=== PATIENT | female | born 1965 | race Caucasian/White ===

== ENCOUNTER 2016-08-04 15:49 | Emergency (ER) | payer OTHER ==
[~2016-08-04] VITALS: Ht 157.5 cm; Wt 71.7 kg
[2016-08-04 15:53] VITALS: BP 178/86
[2016-08-04] MEDS ORDERED: TETANUS-DIPTH-ACEL PERTUSSIS 0.5ML SYRG IM ONE (19:00)
== END 2016-08-04 19:10 | disposition home or self-care (01) ==
LOC: ER 15:53
DX: S91.331A Puncture wound without foreign body, right foot, initial encounter (principal); Z88.0 Allergy status to penicillin; W22.8XXA Striking against or struck by other objects, initial encounter; Y93.89 Activity, other specified; Y99.8 Other external cause status; Y92.89 Other specified places as the place of occurrence of the external cause
CPT/HCPCS: 90471; 90715

== ENCOUNTER 2017-08-28 05:23 | Emergency (ER) | payer OTHER ==
[~2017-08-28] VITALS: Ht 157.5 cm; Wt 70.8 kg
[2017-08-28 06:34] LABS: Basophils # (auto) 0.1 uL; Eosinophils # (auto) 0.2 uL; Eosinophils % (auto) 3.4 % (0.0-7.0); Hematocrit 41.5 % (36.0-46.0); Hemoglobin 14.3 g/dL (12.2-16.2); Lymphocytes # (auto) 2.3 uL; Lymphocytes % (auto) 40.1 % (10.0-50.0); Mean Corpuscular Hemoglobin 32.2 pg (28.0-32.0); Mean Corpuscular Hgb Conc. 34.6 g/dL (32.0-36.0); Mean Corpuscular Volume 93.1 fL (80.0-100.0); Monocytes # (auto) 0.5 uL; Monocytes % (auto) 8.4 % (0.0-12.0); Neutrophils # (auto) 2.7 uL; Neutrophils % (auto) 47.1 % (37.0-80.0); Nucleated Red Blood Cells % 1.4 %; Red Blood Cells 4.46 10^6/uL (4.0-5.20); Red Cell Distribution Width 13.5 % (11.8-14.3); White Blood Cell 5.7 10^3/uL (4.4-10.8)
[2017-08-28 06:47] LABS: Albumin 3.8 g/dL (3.4-5.0); Calcium 9.2 mg/dL (8.5-10.1)
[2017-08-28 06:53] LABS: Bilirubin, Total 0.4 mg/dL (0.2-1.0); Total Protein 7.7 g/dL (6.4-8.2)
[2017-08-28 07:06] LABS: Platelet Count (auto) 430 10^3/uL (140-450)
[2017-08-28 08:11] VITALS: BP 145/81
[2017-08-28] MEDS: PROMETHAZINE HCL 25 MG/ML 1ML IM ONE (08:22)
[2017-08-28] MEDS: KETOROLAC TROMETH 60MG/2ML VIAL IM ONE (08:22)
== END 2017-08-28 09:05 | disposition home or self-care (01) ==
LOC: ER 05:32
DX: R51 Headache (principal); M54.2 Cervicalgia; I10 Essential (primary) hypertension
CPT/HCPCS: 36415; 70450; 72040; 80053; 85025; 96372; 99285; J1885; J2550

== ENCOUNTER 2020-09-24 11:09 | Emergency (ER) | payer OTHER ==
[~2020-09-24] VITALS: Ht 157.5 cm; Wt 69.9 kg
[2020-09-24 13:20] LABS: Basophils # (auto) 0.1 10 ^3/uL (0-0.2); Basophils % (auto) 0.7 % (0.0-2.0); Hemoglobin 13.8 g/dL (12.2-16.2); Mean Corpuscular Hemoglobin 33.2 pg (28.0-32.0); Monocytes # (auto) 0.6 10 ^3/uL (0-1.3); Neutrophils % (auto) 55.6 % (37.0-80.0)
[2020-09-24 13:23] LABS: Eosinophils # (auto) 0.1 10 ^3/uL (0-0.8); Eosinophils % (auto) 1.8 % (0.0-7.0); Hematocrit 39.1 % (36.0-46.0); Lymphocytes # (auto) 2.6 10 ^3/uL (0.4-5.4); Lymphocytes % (auto) 33.8 % (10.0-50.0); Mean Corpuscular Hgb Conc. 35.3 g/dL (32.0-36.0); Mean Corpuscular Volume 94.2 fL (80.0-100.0); Monocytes % (auto) 8.1 % (0.0-12.0); Neutrophils # (auto) 4.3 10 ^3/uL (1.6-8.6); Red Blood Cells 4.15 10^6/uL (4.0-5.20); Red Cell Distribution Width 13.8 % (11.8-14.3); White Blood Cell 7.7 10^3/uL (4.4-10.8)
[2020-09-24 13:46] LABS: Chloride 103 mmol/L (98-107); Potassium 3.5 mmol/L (3.5-5.1); Sodium 136 mmol/L (136-145)
[2020-09-24 13:56] LABS: Alanine Aminotransferase 38 U/L (13-56); Albumin 3.9 g/dL (3.4-5.0); Alkaline Phosphatase 70 U/L (45-117); Anion Gap 5 (5-15); Aspartate Aminotransferase 16 U/L (15-37); BUN/Creatinine Ratio 23.2; Bilirubin, Total 0.3 mg/dL (0.2-1.0); Blood Urea Nitrogen 16 mg/dL (7-18); Calcium 8.8 mg/dL (8.5-10.1); Carbon Dioxide 28 mmol/L (21-32); GFR African American 114 mL/min; GFR Non-African American 94 mL/min; Glucose 88 mg/dL (74-106); Total Protein 7.6 g/dL (6.4-8.2)
[2020-09-24 14:26] LABS: Urine Bacteria NONE SEEN /hpf (None Seen); Urine Blood Negative /uL (Negative); Urine Specific Gravity 1.013 (1.001-1.035); Urine WBC <1 /hpf (0 - 5)
[2020-09-24 15:00] VITALS: BP 149/99
== END 2020-09-24 15:17 | disposition home or self-care (01) ==
LOC: ER 11:09
DX: R42 Dizziness and giddiness (principal); R51.9 Headache, unspecified; I10 Essential (primary) hypertension; Z88.0 Allergy status to penicillin
CPT/HCPCS: 36415; 70450; 72125; 80053; 81001; 84484; 85025; 85049

== ENCOUNTER 2024-09-08 02:20 | Emergency (ER) | payer OTHER ==
[~2024-09-08] VITALS: Ht 157.5 cm; Wt 155.0 kg
[2024-09-08] MEDS ORDERED: HYDROcodone-ACET 5/325MG TAB PO ONE (03:00)
[2024-09-08] MEDS ORDERED: KETOROLAC TROMETH 60MG/2ML VIAL IM ONE (03:00)
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
[2024-09-08] MEDS: SODIUM CHLORIDE 0.9% 1,000 ML IV ONE (04:38)
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
[2024-09-08 04:45] LABS: Basophils # (auto) 0.1 10 ^3/uL (0-0.2); Basophils % (auto) 0.5 % (0.0-2.0); Eosinophils # (auto) 0.1 10 ^3/uL (0-0.8); Eosinophils % (auto) 0.4 % (0.0-7.0); Hematocrit 40.3 % (36.0-46.0); Hemoglobin 13.4 g/dL (12.2-16.2); Lymphocytes % (auto) 14.3 % (10.0-50.0); Mean Corpuscular Hemoglobin 30.1 pg (28.0-32.0); Mean Corpuscular Hgb Conc. 33.1 g/dL (32.0-36.0); Mean Corpuscular Volume 90.8 fL (80.0-100.0); Monocytes # (auto) 0.8 10 ^3/uL (0-1.3); Monocytes % (auto) 5.6 % (0.0-12.0); Neutrophils % (auto) 79.2 % (37.0-80.0); Platelet Count (auto) 419 10^3/uL (140-450); Red Blood Cells 4.44 10^6/uL (4.0-5.20); Red Cell Distribution Width 15.3 % (11.8-14.3); White Blood Cell 13.8 10^3/uL (4.4-10.8)
[2024-09-08 04:55] LABS: Alanine Aminotransferase 30 U/L (7-40); Albumin 4.6 g/dL (3.2-4.8); Alkaline Phosphatase 116 U/L (46-116); Anion Gap 12 (5-15); Aspartate Aminotransferase 26 U/L (<34); BUN/Creatinine Ratio 12.1 (10.0-20.0); Blood Urea Nitrogen 11 mg/dL (9-23); Calcium 9.8 mg/dL (8.7-10.4); Carbon Dioxide 23 mmol/L (20-31); Chloride 104 mmol/L (98-107); Sodium 139 mmol/L (136-145); Total Protein 7.6 g/dL (5.7-8.2)
[2024-09-08 04:56] LABS: Bilirubin, Total 0.4 mg/dL (0.2-1.0); Glucose 188 mg/dL (74-106); Potassium 3.4 mmol/L (3.5-5.1)
[2024-09-08 05:30] VITALS: O2SAT 96
[2024-09-08] MEDS: HYDROcodone-ACET 5/325MG TAB PO ONE (09:12)
[2024-09-08] MEDS: fentaNYL CITRATE 100 MCG/2 ML VL IV ONE (09:13)
[2024-09-08 11:45] VITALS: BP 100/63; PULSE 89; RESP 15; TEMP 96.7; O2SAT 95
--- NOTE | 2024-09-10 12:43 | ECG ---
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
== END 2024-09-08 11:50 | disposition short-term general hospital (02) ==
LOC: EDBD 02:20 → ER 02:20
DX: S22.22XA Fracture of body of sternum, initial encounter for closed fracture (principal); S13.4XXA Sprain of ligaments of cervical spine, initial encounter; M25.561 Pain in right knee; I10 Essential (primary) hypertension; V89.2XXA Person injured in unspecified motor-vehicle accident, traffic, initial encounter; Z88.0 Allergy status to penicillin; Y93.I9 Activity, other involving external motion; Y92.488 Other paved roadways as the place of occurrence of the external cause; Y99.8 Other external cause status
CPT/HCPCS: 36415; 70450; 71250; 72040; 80053; 84484; 85025; 96360; 99285; J7030; 93005